=== PATIENT | female | born 1960 | race African-American/Black ===

== ENCOUNTER 2019-02-25 11:37 | Emergency (ER) | payer SELFPAY ==
--- NOTE | 2019-02-25 14:17 | RAD REPORT ---
EXAM DESCRIPTION: CT - Head Brain Wo Cont - 02/25/2019 2:08 pm CLINICAL HISTORY: HEADACHE Headache, drowsiness COMPARISON: No comparisons TECHNIQUE: All CT scans are performed using dose optimization technique as appropriate and may inclu de automated exposure control or mA/KV adjustment according to patient size. FINDINGS: No intracranial hemorrhage, hydrocephalus or extra-axial fluid collection.No areas of brai n edema or evidence of midline shift. 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 The paranasal sinuses and mastoids are clear. The calvarium is intact. IMPRESSION: No acute intracranial abnormality.
--- NOTE | 2019-02-25 14:50 | ER ---
Nurse's Notes [facility] Name: Cheyenne Herrera Age: 58 yrs Sex: Female : 1960 Arrival Date: 02/25/2019 Time: 11:38 Bed 14 Private MD: Diagnosis: Headache Presentation: 02/25 11:41 Presenting complaint: Patient states: Headache x 2 days. Denies photosensitivity/N/V. hb Transition of care: patient was not received from another setting of care. Onset of symptoms was February 24, 2019. Risk Assessment: Do you want to hurt yourself or someone else? Patient reports no desire to harm self or others. Initial Sepsis Screen: Does the patient meet any 2 criteria? HR > 90 bpm. No. Patient's initial sepsis screen is negative. Care prior to arrival: Medication(s) given: Tylenol, at 0800 today. 11:41 Method Of Arrival: Ambulatory hb 11:41 Acuity: JONATHAN 3 hb 14:53 Initial Sepsis Screen: Does the patient have a suspected source of infection? No. mg2 Patient's initial sepsis screen is negative. Triage Assessment: 14:53 Headache History: The patient has had previous headaches. General: Appears in no mg2 apparent distress. comfortable, Behavior is calm, cooperative. Pain: Complains of pain in forehead Also complains of no other associated symptoms. Historical: - Allergies: 11:43 No Known Allergies; hb - Home Meds: 11:43 None [Active]; hb - PMHx: 11:43 None; hb - PSHx: 11:43 None; hb - Immunization history:: Adult Immunizations up to date. - Social history:: Smoking status: Patient/guardian denies using tobacco. - Ebola Screening: : No symptoms or risks identified at this time. Screenin:53 Abuse screen: Denies threats or abuse. Denies injuries from another. Nutritional mg2 screening: No deficits noted. Tuberculosis screening: No symptoms or risk factors identified. Fall Risk None identified. Assessment: 14:51 General: Appears in no apparent distress. comfortable, Behavior is calm, cooperative. mg2 Pain: Complains of pain in forehead Pain does not radiate. Pain currently is 5 out of 10 on a pain scale. Quality of pain is described as aching, Pain began gradually. Neuro: Level of Consciousness is awake, alert, obeys commands, Oriented to person, place, time, situation, Reports headache. Cardiovascular: Capillary refill < 3 seconds Patient's skin is warm and dry. Respiratory: No deficits noted. GI: No signs and/or symptoms were reported involving the gastrointestinal system. GI:. : Urine is pls see urine dipstick. EENT: No signs and/or symptoms were reported regarding the EENT system. Derm: Skin is intact, is healthy with good turgor, Skin is pink, warm \T\ dry. normal. Musculoskeletal: Circulation, motion, and sensation intact. Capillary refill < 3 seconds. Vital Signs: 11:43 BP 124 / 80; Pulse 107; Resp 16; Temp 99.4; Pulse Ox 100% on R/A; Weight 77.11 kg; hb Height 5 ft. 5 in. (165.10 cm); Pain 5/10; 11:43 Body Mass Index 28.29 (77.11 kg, 165.10 cm) hb ED Course: 11:38 Patient arrived in ED. as 11:43 Triage completed. hb 11:43 Arm band placed on. 13:42 Ady Coleman PA is PHCP. [facility] 13:42 Elkin Garcia MD is Attending Physician. jmm 13:57 Chaim Cintron, RN is Primary Nurse. mg2 14:08 CT Head Brain wo Cont In Process Unspecified. EDMS 14:50 Francisco Ayers MD is Referral Physician. jmm 14:53 Patient has correct armband on for positive identification. mg2 14:53 No provider procedures requiring assistance completed. Patient did not have IV access mg2 during this emergency room visit. Administered Medications: No medications were administered Outcome: 14:50 Discharge ordered by . jmm 14:59 Patient left the ED. bp Signatures: Dispatcher [employer] EDMS Ady Coleman PA PA jmm Martinez, Amelia as Baxter, Heather, RN RN Kenrick Katz RN RN bp Chaim Cintron, CHYNA RN mg2
--- NOTE | 2019-02-25 14:51 | EDPHYS ---
Physician Documentation [facility] Name: Cheyenne Herrera Age: 58 yrs Sex: Female : 1960 Arrival Date: 02/25/2019 Time: 11:38 Bed 14 Private MD: ED Physician Elkin Garcia HPI: 02/25 13:43 This 58 yrs old Black Female presents to ER via Ambulatory with complaints of Headache. jmm 13:43 The patient complains of pain to the forehead. Onset: The symptoms/episode jmm began/occurred gradually, 2 day(s) ago. Associated signs and symptoms: Pertinent negatives: fever, neck stiffness, paresthesias, Photophobia vision changes, vomiting, weakness. This is a 58 year old female with no known chronic medical conditions that presents to the ED with complaints of a frontal headache beginning 2 days prior. Patient states that the headache comes and goes and is currently resolved. Patient denies neck pain, denies sensitivity to light, denies weakness. . Historical: - Allergies: 11:43 No Known Allergies; hb - Home Meds: 11:43 None [Active]; hb - PMHx: 11:43 None; hb - PSHx: 11:43 None; hb - Immunization history:: Adult Immunizations up to date. - Social history:: Smoking status: Patient/guardian denies using tobacco. - Ebola Screening: : No symptoms or risks identified at this time. ROS: 13:43 Constitutional: Negative for fever, chills, and weight loss, Cardiovascular: Negative jmm for chest pain, palpitations, and edema, Respiratory: Negative for shortness of breath, cough, wheezing, and pleuritic chest pain. 13:43 Neuro: Positive for headache. 13:43 All other systems are negative. Exam: 13:43 Head/Face: atraumatic. Eyes: EOMI, no conjunctival erythema appreciated ENT: Moist jmm Mucus Membranes Neck: Trachea midline, Supple Chest/axilla: Normal chest wall appearance and motion. Cardiovascular: Regular rate and rhythm. No edema appreciated Respiratory: Normal respirations, no respiratory distress appreciated Abdomen/GI: Non distended, soft Back: Normal ROM Skin: General appearance color normal MS/ Extremity: Moves all extremities, no obvious deformities appreciated, no edema noted to the lower extremities 13:43 Constitutional: The patient appears in no acute distress, alert, awake. 13:43 Neuro: Orientation: is normal, Mentation: is normal, Memory: is normal, Gait: is steady. 13:43 Psych: Behavior/mood is pleasant, cooperative. Vital Signs: 11:43 BP 124 / 80; Pulse 107; Resp 16; Temp 99.4; Pulse Ox 100% on R/A; Weight 77.11 kg; hb Height 5 ft. 5 in. (165.10 cm); Pain 5/10; 11:43 Body Mass Index 28.29 (77.11 kg, 165.10 cm) hb MDM: 13:43 Patient medically screened. [facility] 14:48 Data reviewed: vital signs, nurses notes. Counseling: I had a detailed discussion with [facility] the patient and/or guardian regarding: the historical points, exam findings, and any diagnostic results supporting the discharge/admit diagnosis, lab results, radiology results, the need for outpatient follow up, to return to the emergency department if symptoms worsen or persist or if there are any questions or concerns that arise at home. ED course: Patient is alert and non toxic in appearance. No focal neuro deficits. No meningeal signs appreciated. CT imaging concerning for lipoma. Patient advised to follow up with Neuro and otherwise given strict return precautions. . 02/25 13:47 Order name: CT Head Brain wo Cont; Complete Time: 14:20 [facility] 02/25 13:47 Order name: Urine Dipstick-Ancillary (obtain specimen); Complete Time: 14:17 [facility] Administered Medications: No medications were administered Disposition: 02/25/19 14:50 Discharged to Home. Impression: Headache. - Condition is Stable. - Discharge Instructions: Lipoma. - Medication Reconciliation Form, Thank You Letter, Antibiotic Education, Prescription Opioid Use form. - Follow up: Francisco Ayers MD; When: 2 - 3 days; Reason: Recheck today's complaints, Continuance of care, Re-evaluation by your physician. - Notes: Please follow up with Neurology. 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 Please return to the ED if: You develop increased pain You develop vomiting You develop fever Any other concerning symptoms. Signatures: Dispatcher [employer] EDMS Ady Coleman PA PA jmm Baxter, Heather, RN RN hb Gianna, Kenrick, RN RN bp Corrections: (The following items were deleted from the chart) 14:59 14:50 02/25/2019 14:50 Discharged to Home. Impression: Headache. Condition is Stable. bp Forms are Medication Reconciliation Form, Thank You Letter, Antibiotic Education, Prescription Opioid Use. Follow up: Francisco Ayers; When: 2 - 3 days; Reason: Recheck today's complaints, Continuance of care, Re-evaluation by your physician. davon
== END 2019-02-25 14:59 | disposition home or self-care (01) ==
LOC: ER 11:37
DX: R51 Headache (principal)
CPT/HCPCS: 70450

== ENCOUNTER 2019-03-25 17:40 | Emergency (ER) | payer SELFPAY ==
--- NOTE | 2019-03-25 19:53 | RAD REPORT ---
EXAM DESCRIPTION: RAD - Chest Single View - 03/25/2019 7:42 pm CLINICAL HISTORY: PICC Line Placement COMPARISON: No comparisons FINDINGS: Portable chest was obtained following placement of a right upper extremity PICC line. The catheter tip projects over the right brachiocephalic vein..
--- NOTE | 2019-03-25 20:37 | EDPHYS ---
Physician Documentation [facility] Name: Cheyenne Herrera Age: 58 yrs Sex: Female : 1960 Arrival Date: 03/25/2019 Time: 17:43 Bed 26 Private MD: ED Physician Elkin Garcia HPI: 03/25 19:22 This 58 yrs old Black Female presents to ER via Ambulatory with complaints of Pulled jmm out PICC. 19:22 PICC line is not working. Onset: The symptoms/episode began/occurred acutely, today. jmm Patient states they were unable to use picc line today. Concerned it may be out of place. Patient denies abdominal pain or vomiting. Seen 03/02/2019 for gallbladder infection. Has 1 more week remaining of rocephin/flagyl IV antibiotics. . Historical: - Allergies: 18:30 No Known Allergies; iw - Immunization history:: Adult Immunizations up to date, Last tetanus immunization:. - Ebola Screening: : Patient negative for fever greater than or equal to 101.5 degrees Fahrenheit, and additional compatible Ebola Virus Disease symptoms Patient denies exposure to infectious person Patient denies travel to an Ebola-affected area in the 21 days before illness onset No symptoms or risks identified at this time. - Social history:: Smoking status: Patient/guardian denies using tobacco, never smoked. ROS: 19:22 Constitutional: Negative for fever, chills, and weight loss, Cardiovascular: Negative jmm for chest pain, palpitations, and edema, Respiratory: Negative for shortness of breath, cough, wheezing, and pleuritic chest pain, Abdomen/GI: Negative for abdominal pain, nausea, vomiting, diarrhea, and constipation. 19:22 All other systems are negative. Exam: 19:22 Head/Face: atraumatic. Eyes: EOMI, no conjunctival erythema appreciated ENT: Moist jmm Mucus Membranes Neck: Trachea midline, Supple Chest/axilla: Normal chest wall appearance and motion. Cardiovascular: Regular rate and rhythm. No edema appreciated Respiratory: Normal respirations, no respiratory distress appreciated Abdomen/GI: Non distended, soft Back: Normal ROM Skin: General appearance color normal MS/ Extremity: Moves all extremities, no obvious deformities appreciated, no edema noted to the lower extremities Neuro: Awake and alert, normal gait Psych: Behavior is normal, Mood is normal, Patient is cooperative and pleasant 19:22 Constitutional: The patient appears in no acute distress, alert, awake. Vital Signs: 18:28 BP 155 / 100; Pulse 99; Resp 18 S; Temp 98.0; Pulse Ox 99% on R/A; Pain 0/10; iw 19:01 BP 152 / 99; Pulse 91; Resp 17; Pulse Ox 100% ; rv 20:40 BP 172 / 92; Pulse 92; Resp 18; Temp 98.0(O); Pulse Ox 100% on R/A; Pain 0/10; fc MDM: 19:22 Patient medically screened. [facility] 20:30 Data reviewed: vital signs, nurses notes. Counseling: I had a detailed discussion with [facility] the patient and/or guardian regarding: the historical points, exam findings, and any diagnostic results supporting the discharge/admit diagnosis, the need for outpatient follow up, to return to the emergency department if symptoms worsen or persist or if there are any questions or concerns that arise at home. ED course: PICC Line is currently working in the ED. Patient is advised to follow up with ID/IR at [facility] for further evaluation of picc line. Patient is otherwise given return precautions. Patient understood and agrees with the plan of care. . 03/25 19:26 Order name: Chest Single View XRAY; Complete Time: 20:08 [facility] Administered Medications: No medications were administered Disposition: 03/25/19 20:36 Discharged to Home. 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 - Condition is Stable. - Discharge Instructions: PICC Home Guide. - Medication Reconciliation Form, Thank You Letter, Antibiotic Education, Prescription Opioid Use form. - Follow up: Private Physician; When: 2 - 3 days; Reason: Recheck today's complaints, Continuance of care, Re-evaluation by your physician. Addendum: 03/30/2019 09:47 Co-signature as Attending Physician, Elkin Garcia MD I agree with the assessment and k dr plan of care. Signatures: Dispatcher [employer] EDMS Elkin Garcia MD MD kdr Mickail, Joel, PA PA jmm Chretien, Felicia, RN RN fc Melissa Johnson RN RN Benjamin Santiago RN RN rv Corrections: (The following items were deleted from the chart) 03/25 20:47 20:36 03/25/2019 20:36 Discharged to Home. Impression: Other specified complication of fc cardiac and vascular prosthetic devices, implants and grafts. Condition is Stable. Forms are Medication Reconciliation Form, Thank You Letter, Antibiotic Education, Prescription Opioid Use. Follow up: Private Physician; When: 2 - 3 days; Reason: Recheck today's complaints, Continuance of care, Re-evaluation by your physician. davon
--- NOTE | 2019-03-25 20:37 | ER ---
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 Transition of care: patient was not received from another setting of care. Onset of symptoms was March 25, 2019. Risk Assessment: Do you want to hurt yourself or someone else? Patient reports no desire to harm self or others. Initial Sepsis Screen: Does the patient meet any 2 criteria? No. Patient's initial sepsis screen is negative. Does the patient have a suspected source of infection? No. Patient's initial sepsis screen is negative. Care prior to arrival: None. 18:25 Method Of Arrival: Ambulatory iw 18:25 Acuity: JONATHAN 4 iw Historical: - Allergies: 18:30 No Known Allergies; iw - Immunization history:: Adult Immunizations up to date, Last tetanus immunization:. - Ebola Screening: : Patient negative for fever greater than or equal to 101.5 degrees Fahrenheit, and additional compatible Ebola Virus Disease symptoms Patient denies exposure to infectious person Patient denies travel to an Ebola-affected area in the 21 days before illness onset No symptoms or risks identified at this time. - Social history:: Smoking status: Patient/guardian denies using tobacco, never smoked. Screenin:42 Abuse screen: Denies threats or abuse. Denies injuries from another. Nutritional rv screening: No deficits noted. Tuberculosis screening: No symptoms or risk factors identified. Fall Risk None identified. Assessment: 18:40 General: Appears in no apparent distress. comfortable, Behavior is calm, cooperative. rv Pain: Denies pain. Neuro: Level of Consciousness is awake, alert, obeys commands, Oriented to person, place, time, situation. Cardiovascular: Patient's skin is warm and dry. Respiratory: Reports Airway is patent. GI: No signs and/or symptoms were reported involving the gastrointestinal system. : No signs and/or symptoms were reported regarding the genitourinary system. EENT: No signs and/or symptoms were reported regarding the EENT system. Derm: Skin is intact. Musculoskeletal: Swelling absent. 20:30 Reassessment: Ady STRAUSS spoke with pt's doctor. Pt to follow up tomorrow but ok to use fc line until then. Line is currently not flushing. Dressing was changed and line noted to be bent underneath. Once this was straightened out both ports flushed and danni back with no problems. Dressing applied and end caps changed. Vital Signs: 18:28 BP 155 / 100; Pulse 99; Resp 18 S; Temp 98.0; Pulse Ox 99% on R/A; Pain 0/10; iw 19:01 BP 152 / 99; Pulse 91; Resp 17; Pulse Ox 100% ; rv 20:40 BP 172 / 92; Pulse 92; Resp 18; Temp 98.0(O); Pulse Ox 100% on R/A; Pain 0/10; fc ED Course: 17:43 Patient arrived in ED. as 18:17 Benjamin Santiago, RN is Primary Nurse. rv 18:27 Primary Nurse role handed off by Benjamin Santiago, CHYNA mg2 18:27 Chaim Cintron, CHYNA is Primary Nurse. mg2 18:28 Triage completed. iw 18:30 Arm band placed on. iw 18:32 Ady Coleman PA is PHCP. m 18:32 Elkin Garcia MD is Attending Physician. jmm 18:41 Accessed PICC line. Clean \T\ dry. Dressing intact. No blood return. Difficult to flush. rv 18:42 Patient has correct armband on for positive identification. Bed in low position. Call rv light in reach. Side rails up X 1. Pulse ox on. NIBP on. 19:45 Chest Single View XRAY In Process Unspecified. EDMS 20:38 No provider procedures requiring assistance completed. PICC line remains intact. fc Administered Medications: No medications were administered Outcome: 20:36 Discharge ordered by . [facility] 20:38 Discharged to home ambulatory, with family. fc 20:38 Condition: good 20:38 Discharge instructions given to patient, family, Instructed on discharge instructions, follow up and referral plans. OK to use PICC for now and contact your provider in am per Ady STRAUSS Demonstrated understanding of instructions, follow-up care, will contact provider in am Prescriptions given X none 20:47 Patient left the ED. fc Signatures: Dispatcher [employer] EDMS Ady Coleman PA PA jmm Chretien, Felicia RN RN Angle Diane Irene, RN RN iw Gardose, Michele, RN RN mg2 Benjamin Santiago RN RN rv
[2019-03-25 21:19] VITALS: TEMP 98
[2019-03-25 21:21] VITALS: O2SAT 100
[2019-03-25 21:40] VITALS: BP 172/92
== END 2019-03-25 20:47 | disposition home or self-care (01) ==
LOC: ER 17:40
DX: T82.897A Other specified complication of cardiac prosthetic devices, implants and grafts, initial encounter (principal)
CPT/HCPCS: 71045; 99284

== ENCOUNTER 2024-07-16 22:48 | Emergency (ER) | payer OTHER, SELFPAY ==
--- NOTE | 2024-07-17 00:52 | ER ---
Nurse's Notes [facility] Name: Cheyenne Herrera Age: 63 yrs Sex: Female : 1960 Arrival Date: 07/16/2024 Time: 22:48 Bed 9 Private MD: Diagnosis: Pain in right thigh Presentation: 07/16 23:23 Chief complaint: Patient states: right leg pain upper anterior thigh. Coronavirus vc1 screen: Client denies travel out of the [place] in the last 14 days. At this time, the client does not indicate any symptoms associated with coronavirus-19. Ebola Screen: Patient negative for fever greater than or equal to 101.5 degrees Fahrenheit, and additional compatible Ebola Virus Disease symptoms Patient denies exposure to infectious person. Patient denies travel to an Ebola-affected area in the 21 days before illness onset. No symptoms or risks identified at this time. Initial Sepsis Screen: Does the patient meet any 2 criteria? No. Patient's initial sepsis screen is negative. Does the patient have a suspected source of infection? No. Patient's initial sepsis screen is negative. Risk Assessment: Do you want to hurt yourself or someone else? Patient reports no desire to harm self or others. Onset of symptoms was July 16, 2024. Care prior to arrival: None. Activity prior to arrival: None. Mechanism of Injury: No Mechanism of Injury. 23:23 Acuity: JONATHAN 4 vc1 23:23 Method Of Arrival: Ambulatory vc1 Triage Assessment: 23:18 General: Appears in no apparent distress. uncomfortable, slender, well groomed, well vc1 developed, well nourished, Behavior is calm, cooperative, appropriate for age. Pain: Complains of pain in right quadriceps Pain does not radiate. Pain currently is 8 out of 10 on a pain scale. Quality of pain is described as sharp. 23:18 EENT: No deficits noted. No signs and/or symptoms were reported regarding the EENT vc1 system. Neuro: Level of Consciousness is awake, alert, obeys commands, Oriented to person, place, time, situation, Appropriate for age. Cardiovascular: Capillary refill < 3 seconds Patient's skin is warm and dry. Respiratory: Airway is patent Respiratory effort is even, unlabored, Respiratory pattern is regular, symmetrical, Breath sounds are clear bilaterally. GI: No deficits noted. No signs and/or symptoms were reported involving the gastrointestinal system. : No deficits noted. No signs and/or symptoms were reported regarding the genitourinary system. Derm: Skin is intact, is healthy with good turgor, Skin is dry, Skin is normal, Skin temperature is warm. Musculoskeletal: Circulation, motion, and sensation intact. Range of motion: intact in all extremities, Reports pain in right quadriceps. Historical: - Allergies: 23:25 No Known Allergies; vc1 - Home Meds: 23:25 None [Active]; vc1 - PMHx: 23:25 None; vc1 - PSHx: 23:25 None; vc1 - Immunization history:: Client reports receiving the 2nd dose of the Covid vaccine. - Infectious Disease History:: Denies. - Social history:: Smoking status: Patient denies any tobacco usage or history of. Screenin:26 [facility] ED Fall Risk Assessment (Adult) History of falling in the last 3 months, vc1 including since admission No falls in past 3 months (0 pts) Confusion or Disorientation No (0 pts) Intoxicated or Sedated No (0 pts) Impaired Gait No (0 pts) Mobility Assist Device Used No (0 pt) Altered Elimination No (0 pt) Score/Fall Risk Level 0 - 2 = Low Risk Oriented to surroundings, Maintained a safe environment, Educated pt \T\ family on fall prevention, incl call for assistance when getting out of bed. Abuse screen: Denies threats or abuse. Nutritional screening: No deficits noted. Tuberculosis screening: No symptoms or risk factors identified. Vital Signs: 23:23 BP 152 / 98; Pulse 84; Resp 14; Temp 97.5; Pulse Ox 100% ; Weight 74.84 kg; Height 5 vc1 ft. 2 in. ; Pain 8/10; 23:23 Body Mass Index 30.18 (74.84 kg, 157.48 cm) vc1 23:23 Pain Scale: Adult vc1 ED Course: 22:52 Patient arrived in ED. gm2 23:00 Archana Rosario PA-C is PHCP. sb4 23:00 Jay Cortes MD is Attending Physician. sb4 23:25 Triage completed. vc1 23:25 Arm band placed on right wrist. vc1 07/17 01:26 Patient has correct armband on for positive identification. Provided Education on: use vc1 shan wrap treat pain with ibuprofen. 01:26 No provider procedures requiring assistance completed. Patient did not have IV access vc1 during this emergency room visit. Administered Medications: 01:25 Drug: Acetaminophen PO 1000 mg PO once Route: PO; vc1 01:25 Follow up: Response: Medication administered at discharge. vc1 01:25 Drug: Ibuprofen PO 600 mg PO once Route: PO; vc1 01:26 Follow up: Response: Medication administered at discharge. vc1 Medication: :29 VIS not applicable for this client. vc1 Outcome: 00:52 Discharge ordered by . sb4 01:28 Discharged to home ambulatory, with family, vc1 :28 Condition: good 01:28 Discharge instructions given to patient, Instructed on discharge instructions, follow up and referral plans. medication usage, Demonstrated understanding of instructions, follow-up care, medications, Prescriptions given X 1, 01:30 Patient left the ED. vc1 Signatures: Giselle Lynn RN RN vc1 Archana Rosario PA-C PADeloris sb4 Junie Negron 2 Corrections: (The following items were deleted from the chart) 01: 01:25 Response: No adverse reaction; Marked relief of symptoms vc1 vc1
--- NOTE | 2024-07-17 00:52 | EDPHYS ---
Physician Documentation [facility] Name: Cheyenne Herrera Age: 63 yrs Sex: Female : 1960 Arrival Date: 07/16/2024 Time: 22:48 Bed 9 Private MD: ED Physician Jay Cortes HPI: 07/17 01:15 This 63 yrs old Black Female presents to ER via Unassigned with complaints of Leg Pain. sb4 01:15 Patient reports pain on her right upper anterior thigh for 5 days now. She denies any sb4 injury. Denies any prior issues with it. Denies any swelling, redness, warmth, tenderness. States the pain is vague. Is not sure if it is better or worse with pressure or ambulation. No issues walking. Has not taking any medication for the pain. Denies any numbness or tingling. Historical: - Allergies: 07/16 23:25 No Known Allergies; vc1 - Home Meds: 23:25 None [Active]; vc1 - PMHx: 23:25 None; vc1 - PSHx: 23:25 None; vc1 - Immunization history:: Client reports receiving the 2nd dose of the Covid vaccine. - Infectious Disease History:: Denies. - Social history:: Smoking status: Patient denies any tobacco usage or history of. ROS: 07/17 01:15 Constitutional: Negative for fever, chills, and weight loss, sb4 MS/extremity: Positive for pain, of the right quadriceps, All other systems are negative, Exam: 01:15 Constitutional: This is a well developed, well nourished patient who is awake, alert, sb4 and in no acute distress. Head/Face: Normocephalic, atraumatic. Eyes: Extra-ocular motions intact. Periorbital areas with no swelling, redness, or edema. ENT: Mucous membranes moist. Respiratory: No increased work of breathing, no retractions or nasal flaring. Skin: Warm, dry with normal turgor. Normal color with no rashes, no lesions, and no evidence of cellulitis. MS/ Extremity: Pulses equal, no cyanosis. Neurovascular intact. Full, normal range of motion. Vital Signs: 07/16 23:23 BP 152 / 98; Pulse 84; Resp 14; Temp 97.5; Pulse Ox 100% ; Weight 74.84 kg; Height 5 vc1 ft. 2 in. ; Pain 8/10; 23:23 Body Mass Index 30.18 (74.84 kg, 157.48 cm) vc1 23:23 Pain Scale: Adult vc1 MDM: 23:19 Medical Screening Exam initiated sb4 07/17 01:15 Data reviewed: vital signs, nurses notes, and as a result, I will discharge patient. sb4 Counseling: I had a detailed discussion with the patient and/or guardian regarding the historical points, exam findings, and any diagnostic results supporting the discharge/admit diagnosis, the presence of at least one elevated blood pressure reading (>120/80) during this emergency department visit, the need for outpatient follow up, for definitive care, to return to the emergency department if symptoms worsen or persist or if there are any questions or concerns that arise at home. 07/17 00:51 Order name: Yvan Wrap: thigh; Complete Time: 01:15 sb4 Administered Medications: 01:25 Drug: Acetaminophen PO 1000 mg PO once Route: PO; vc1 01:25 Follow up: Response: Medication administered at discharge. vc1 01:25 Drug: Ibuprofen PO 600 mg PO once Route: PO; vc1 01:26 Follow up: Response: Medication administered at discharge. vc1 Disposition: 21:05 Co-signature as Attending Physician, Jay Cortes MD I agree with the assessment sp4 and plan of care. I reviewed the patient's care provided by the Advanced Practice Provider and agree with the diagnosis and treatment plan. Disposition Summary: 07/17/24 00:52 Discharge Ordered Notes: Location: Home sb4 Problem: new sb4 Symptoms: have improved sb4 Condition: Stable sb4 Diagnosis - Pain in right thigh sb4 Followup: sb4 - With: Private Physician - When: As needed - Reason: Recheck today's complaints, Re-evaluation by your physician Discharge Instructions: - Discharge Summary Sheet sb4 - Musculoskeletal Pain sb4 - Pain Without a Known Cause sb4 Forms: - Patient Portal Instructions sb4 - Leadership Thank You Letter sb4 Prescriptions: - Ibuprofen 600 mg Oral Tablet - take 1 tablet ORAL route every 6 hours As needed take with food; 30 tablet; sb4 Refills: 0, Product Selection Permitted Signatures: Giselle Lynn RN RN vc1 Archana Rosario PA-C PA-C sb4 Jay Cortes, MD sp4
[2024-07-17] MEDS ORDERED: ACETAMINOPHEN 500 MG TAB ONE (01:19)
[2024-07-17] MEDS ORDERED: IBUPROFEN 200 MG TAB PO ONE (01:19)
[2024-07-17 09:13] VITALS: BP 152/98; TEMP 97.5; O2SAT 100
== END 2024-07-17 01:30 | disposition home or self-care (01) ==
LOC: ER 22:48
DX: M79.651 Pain in right thigh (principal)
CPT/HCPCS: 99283

== ENCOUNTER 2024-10-05 10:53 | Emergency (ER) | payer OTHER ==
[2024-10-05] MEDS ORDERED: HYDROCODONE/APAP 5/325 MG TAB ONE (11:05)
[2024-10-05] MEDS ORDERED: IBUPROFEN 400 MG TAB ONE (11:06)
--- NOTE | 2024-10-05 12:29 | RAD REPORT ---
Exam:Shoulder Left 2+ Views HISTORY: Left shoulder pain FINDINGS: No fracture or dislocation seen. Bones appear osteoporotic. Mild narrowing AC joint
--- NOTE | 2024-10-05 12:37 | EDPHYS ---
Physician Documentation [facility] Name: Cheyenne Herrera Age: 63 yrs Sex: Female : 1960 Arrival Date: 10/05/2024 Time: 10:53 Bed 12 Private MD: ED Physician Jorje Easley HPI: 10/05 11:11 This 63 yrs old Black Female presents to ER via Ambulatory with complaints of Left dr5 Shoulder Pain. 11:11 Onset: The symptoms/episode began/occurred 1 week(s) ago. Patient is a 63-year-old dr5 female with no past medical history is coming in with left shoulder pain that started a week ago. Patient denies trauma, heavy lifting or pulling, or any other injury that could cause shoulder pain. Patient reports pain with rotation. Patient also reports that she does not have a primary care doctor.. Historical: - Allergies: 11:07 No Known Allergies; aa5 - Home Meds: 11:07 None [Active]; aa5 - PMHx: 11:07 None; aa5 - PSHx: 11:07 None; aa5 - Immunization history:: Adult Immunizations up to date. - Infectious Disease History:: Denies. - Social history:: Smoking status: Patient denies any tobacco usage or history of. ROS: 11:11 Constitutional: as per hpi dr5 Exam: 11:11 Constitutional: This is a well developed, well nourished patient who is awake, alert, dr5 and in no acute distress. Head/Face: Normocephalic, atraumatic. ENT: Nares patent. No nasal discharge, no septal abnormalities noted. Tympanic membranes are normal and external auditory canals are clear. Oropharynx with no redness, swelling, or masses, exudates, or evidence of obstruction, uvula midline. Mucous membranes moist. Neck: Trachea midline, no thyromegaly or masses palpated, and no cervical lymphadenopathy. Supple, full range of motion without nuchal rigidity, or vertebral point tenderness. No Meningismus. Chest/axilla: Normal chest wall appearance and motion. Nontender with no deformity. No lesions are appreciated. Cardiovascular: Regular rate and rhythm with a normal S1 and S2. Normal PMI, no JVD. No pulse deficits. Abdomen/GI: Soft, non-tender, non-distended Back: No spinal tenderness. No costovertebral tenderness. Full range of motion. Skin: Warm, dry with normal turgor. Normal color with no rashes, no lesions, and no evidence of cellulitis. Neuro: Awake and alert, GCS 15, oriented to person, place, time, and situation. Cranial nerves II-XII grossly intact. Motor strength 5/5 in all extremities. Sensory grossly intact. Cerebellar exam normal. Normal gait. 11:11 Musculoskeletal/extremity: Extremities: grossly normal except: noted in the anterior aspect of left shoulder: swelling, tenderness, decreased ROM, ROM: limited active range of motion, in the left arm, Circulation is intact in all extremities. Sensation intact. Vital Signs: 11:06 BP 164 / 98; Pulse 90; Resp 16; Temp 98.6; Pulse Ox 97% ; Weight 72.57 kg; Height 5 ft. aa5 4 in. ; Pain 8/10; 11:06 Body Mass Index 27.46 (72.57 kg, 162.56 cm) aa5 11:06 Pain Scale: Adult aa5 MDM: 11:03 Medical Screening Exam initiated dr5 15:07 Differential diagnosis: Sprain, Strain, Fracture, Dislocation. Data reviewed: vital dr5 signs, nurses notes, radiologic studies, plain films. I considered the following discharge prescriptions or medication management in the emergency department Medications were administered in the Emergency Department. See MAR. Care significantly affected by the following Social Determinants of Health: Poor access to healthcare and/or lack of insurance, Poor access to transportation, Problems related to employment. Counseling: I had a detailed discussion with the patient and/or guardian regarding the historical points, exam findings, and any diagnostic results supporting the discharge/admit diagnosis, the presence of at least one elevated blood pressure reading (>120/80) during this emergency department visit, radiology results, the need for outpatient follow up, for definitive care, a family practitioner, a orthopedic surgeon, to return to the emergency department if symptoms worsen or persist or if there are any questions or concerns that arise at home. Medication response: Mead, Ibuprofen. Response to treatment: the patient's symptoms have resolved after treatment, the patient's pain is gone. ED course: Osteoporosis noted to left shoulder. Ibuprofen and Mead given in ER has resolved pain and patient has full range of motion. Recommended patient establish care with primary care doctor this week and follow-up with orthopedic as needed. X-ray result printed and given to patient and her discharge reverse. Patient denies pain at discharge and feel much better. All questions answered and strict ER precautions given. 10/05 11:09 Order name: Shoulder Left (2 View) XRAY; Complete Time: 12:29 dr5 Administered Medications: 11:17 Drug: Ibuprofen PO 800 mg PO once Route: PO; iw 12:00 Follow up: Response: No adverse reaction iw 11:17 Drug: HYDROcodone-acetaminophen PO 5 mg-325 mg 1 tabs PO once Route: PO; iw 12:00 Follow up: Response: No adverse reaction iw Disposition Summary: 10/05/24 12:36 Discharge Ordered Notes: Location: Home dr5 Condition: Stable dr5 Diagnosis - Strain of other muscles, fascia and tendons at shoulder and upper arm level, left dr5 arm Followup: dr5 - With: Emergency Department - When: As needed - Reason: Worsening of condition Followup: dr5 - With: Private Physician - When: 1 - 2 days - Reason: Recheck today's complaints, Continuance of care, Re-evaluation by your physician Discharge Instructions: - Discharge Summary Sheet dr5 - Osteoporosis dr5 - Shoulder Pain dr5 Forms: - Work release form dr5 - Medication Reconciliation Form dr5 - Patient Portal Instructions dr5 - Leadership Thank You Letter dr5 Prescriptions: - Ibuprofen 800 mg Oral Tablet - take 1 tablet ORAL route every 12 hours As needed take with food; 20 tablet; dr5 Refills: 0, Product Selection Permitted Addendum: 10/07/2024 14:42 I was immediately available for consultation during this patient's visit. I did not e c2 personally see the patient or discuss the patient with the GILLIAN. . Signatures: Dispatcher [employer] Melissa Xiao RN RN iw Calderon, Audri, RN RN aa5 Jorje Easley MD MD ec2 Jim Cruz, DIRECTOR INDEX-C DIRECTOR INDEX-Cdr5
--- NOTE | 2024-10-05 12:37 | ER ---
Nurse's Notes [facility] Name: Cheyenne Herrera Age: 63 yrs Sex: Female : 1960 Arrival Date: 10/05/2024 Time: 10:53 Bed 12 Private MD: Diagnosis: Strain of other muscles, fascia and tendons at shoulder and upper arm level, left arm Presentation: 10/05 11:06 Chief complaint: Patient states: left shoulder pain X 1 week. Coronavirus screen: At aa5 this time, the client does not indicate any symptoms associated with coronavirus-19. Ebola Screen: No symptoms or risks identified at this time. Initial Sepsis Screen: Does the patient meet any 2 criteria? No. Patient's initial sepsis screen is negative. Does the patient have a suspected source of infection? No. Patient's initial sepsis screen is negative. Risk Assessment: Do you want to hurt yourself or someone else? Patient reports no desire to harm self or others. 11:06 Method Of Arrival: Ambulatory aa5 11:06 Acuity: JONATHAN 4 aa5 11:06 Onset of symptoms was September 29, 2024. aa5 Historical: - Allergies: 11:07 No Known Allergies; aa5 - Home Meds: 11:07 None [Active]; aa5 - PMHx: 11:07 None; aa5 - PSHx: 11:07 None; aa5 - Immunization history:: Adult Immunizations up to date. - Infectious Disease History:: Denies. - Social history:: Smoking status: Patient denies any tobacco usage or history of. Screenin:09 [facility] ED Fall Risk Assessment (Adult) History of falling in the last 3 months, iw including since admission No falls in past 3 months (0 pts) Confusion or Disorientation No (0 pts) Intoxicated or Sedated No (0 pts) Impaired Gait No (0 pts) Mobility Assist Device Used No (0 pt) Altered Elimination No (0 pt) Score/Fall Risk Level 0 - 2 = Low Risk Oriented to surroundings, Maintained a safe environment. Abuse screen: Denies threats or abuse. Nutritional screening: No deficits noted. Tuberculosis screening: No symptoms or risk factors identified. Assessment: 11:09 General: Appears in no apparent distress. Behavior is calm, cooperative. Pain: iw Complains of pain in anterior aspect of left shoulder and posterior aspect of left shoulder Pain currently is 7 out of 10 on a pain scale. Neuro: Level of Consciousness is awake, alert, obeys commands, Oriented to person, place, time, situation, Moves all extremities. Full function. Cardiovascular: Patient's skin is warm and dry. Respiratory: Respiratory effort is even, unlabored. Derm: Skin is intact, is healthy with good turgor. Musculoskeletal: Range of motion: limited in left shoulder. 12:32 Reassessment: Patient appears in no apparent distress at this time. Patient and/or iw family updated on plan of care and expected duration. Pain level reassessed. Patient is alert, oriented x 3, equal unlabored respirations, skin warm/dry/pink. Vital Signs: 11:06 BP 164 / 98; Pulse 90; Resp 16; Temp 98.6; Pulse Ox 97% ; Weight 72.57 kg; Height 5 ft. aa5 4 in. ; Pain 8/10; 11:06 Body Mass Index 27.46 (72.57 kg, 162.56 cm) aa5 11:06 Pain Scale: Adult aa5 ED Course: 10:58 Patient arrived in ED. cj3 11:03 [facility] 11:03 Jorje Easley MD is Attending Physician. dr5 11:07 Triage completed. aa5 11:08 Arm band placed on. aa5 11:09 Melissa Johnson, RN is Primary Nurse. iw 12:21 Shoulder Left (2 View) XRAY In Process Unspecified. EDMS 12:49 No provider procedures requiring assistance completed. iw Administered Medications: 11:17 Drug: Ibuprofen PO 800 mg PO once Route: PO; iw 12:00 Follow up: Response: No adverse reaction iw 11:17 Drug: HYDROcodone-acetaminophen PO 5 mg-325 mg 1 tabs PO once Route: PO; iw 12:00 Follow up: Response: No adverse reaction iw Medication: 11:09 VIS not applicable for this client. iw Outcome: 12:36 Discharge ordered by . dr5 12:49 Discharged to home ambulatory, iw 12:49 Condition: good 12:50 Patient left the ED. iw Signatures: Dispatcher [employer] EDMelissa Betancourt RN RN iw Calderon, Audri, RN RN aa5 Jim Cruz FNP-C [employer]ET[employer] SPECIALIST-Monica Gutierrez cj3 Corrections: (The following items were deleted from the chart) 11:08 11:06 BP 16 / ???; Pulse 90bpm; Resp 16bpm; Pulse Ox 97%; Temp 98.6F; Pain 8, Adult; aa5 aa5
[2024-10-05 12:55] VITALS: BP 164/98; TEMP 98.6; O2SAT 97
== END 2024-10-05 12:50 | disposition home or self-care (01) ==
LOC: ER 10:53
DX: S46.812A Strain of other muscles, fascia and tendons at shoulder and upper arm level, left arm, initial encounter (principal); M81.0 Age-related osteoporosis without current pathological fracture
CPT/HCPCS: 99282